=== PATIENT | female | born 1975 | race Hispanic/Latino ===

== ENCOUNTER 2017-11-21 04:56 | Emergency (ER) | payer OTHER ==
[2017-11-21 05:04] VITALS: O2SAT 100
--- NOTE | 2017-11-21 05:23 | ED PDOC ---
HPI: Abdomen Time Seen by Provider: 11/21/17 05:15 Chief Complaint (Nursing): Abdominal Pain Chief Complaint (Provider): abbdominal pain History Per: Patient History/Exam Limitations: no limitations Additional Complaint(s): 42yo M in ED for eval of acute abd pain that woke her up this AM severe 101/10 with 2-3 episode of vomiting. pain isolated to right flank/right lower quadrant area. no hx of similar in past. no foreign travel no change in BM no fever or chills, no sick contacts. no vaginal d/c, hematuira, dysuria Past Medical History Reviewed: Historical Data, Nursing Documentation, Vital Signs Vital Signs: Last Vital Signs Temp 97.0 F L 11/21/17 05:01 Pulse 54 L 11/21/17 05:01 Resp 16 11/21/17 05:01 BP 131/69 11/21/17 05:01 Pulse Ox 100 11/21/17 05:41 - Medical History PMH: No Chronic Diseases - Family History Family History: States: No Known Family Hx - Allergies Allergies/Adverse Reactions: Allergies Allergy/AdvReac Type Severity Reaction Status Date / Time No Known Allergies Allergy Verified 11/21/17 05:04 Review of Systems ROS Statement: Except As Marked, All Systems Reviewed And Found Negative Gastrointestinal: Positive for: Nausea, Vomiting, Abdominal Pain Physical Exam - Reviewed Nursing Documentation Reviewed: Yes Vital Signs Reviewed: Yes - Physical Exam Appears: Positive for: Non-toxic, No Acute Distress, Uncomfortable Head Exam: Positive for: ATRAUMATIC, NORMAL INSPECTION, NORMOCEPHALIC Cardiovascular/Chest: Positive for: Regular Rate, Rhythm Respiratory: Positive for: CNT, Normal Breath Sounds Gastrointestinal/Abdominal: Positive for: Tenderness (RLQ), Guarding Back: Positive for: R CVA Tenderness Neurologic/Psych: Positive for: Alert, Oriented - ECG O2 Sat by Pulse Oximetry: 100 - Progress ED Course And Treament: impression: renal stone vs appendicitis. Orders Category Date Time Status ABD & PELVIS IV CONTRAST ONLY [CT] Stat CT 11/21/17 05:20 Ordered COMP METABOLIC PANEL Stat Chem 11/21/17 05:15 Uncollected LIPASE Stat Chem 11/21/17 05:15 Uncollected ED Urine (POC) Stat ED Care 11/21/17 05:15 Uncollected CBC (WITH DIFFERENTIAL) Stat JB 11/21/17 05:15 Uncollected Morphine Med 11/21/17 05:26 Discontinued 2 mg .ROUTE .STK-MED ONE Morphine Med 11/21/17 05:15 Discontinued 2 mg IVP STAT STA Ondansetron [Zofran Inj] Med 11/21/17 05:26 Discontinued 4 mg .ROUTE .STK-MED ONE Ondansetron [Zofran Tab] Med 11/21/17 05:15 Discontinued 4 mg PO STAT STA Scrub Nurse CONT NURSING 11/21/17 05:15 Active IV Insertion (Saline Lock) ONCE NURSING 11/21/17 05:15 Active URINALYSIS Stat URINALYSIS 11/21/17 05:15 Uncollected Medical Decision Making Medical Decision Making: case transferred pending labs and CT results. Disposition - Clinical Impression Clinical Impression: Abdominal pain - Patient ED Disposition Is Patient to be Admitted: Transfer of Care - Disposition Disposition Time: 05:56 Condition: FAIR Forms: [employer] [facility] (Kyrgyz)
[2017-11-21] MEDS ORDERED: Iohexol 300 100 ML IJ ONE (06:30)
[2017-11-21] MEDS ORDERED: Sodium Chloride 0.9% 0 ML IV ONE (06:30)
--- NOTE | 2017-11-21 06:32 | ED PDOC ---
- ECG O2 Sat by Pulse Oximetry: 100 Medical Decision Making Medical Decision Makin:00 --Patient endorsed to me by Alana Benito PA-C, pending blood work and CT scan 07:00 --Patient signed out to Dr. Padilla, pending blood work and CT scan Disposition - Clinical Impression Clinical Impression: Abdominal pain - POA Present On Arrival: None - Disposition Disposition: Transfer of Care Disposition Time: 07:00 Condition: FAIR Forms: [facility] (Kyrgyz) Patient Signed Over To: Candelaria Padilla Handoff Comments: pending labs, CT, and reassessment
[2017-11-21 06:44] LABS: BASO % 0.3 % (0.0-2.0); EOS % 0.1 % (0.0-4.0); HEMOGLOBIN 13.9 g/dL (12.0-16.0); LYMPH # 1.2 K/uL (1.0-4.3); LYMPH % 8.2 % (20.0-40.0); MEAN CORPUSCULAR HEMOGLOBIN 29.6 pg (27.0-31.0); MEAN CORPUSCULAR HGB CONC 32.9 g/dL (33.0-37.0); MEAN PLATELET VOLUME 8.1 fl (7.2-11.7); MONO # 0.7 K/uL (0.0-0.8); MONO % 4.9 % (0.0-10.0); NEUT # 12.5 K/uL (1.8-7.0); NEUT % 86.5 % (50.0-75.0); PLATELET COUNT 352 K/uL (130-400); RBC 4.68 Mil/uL (3.80-5.20); RED CELL DISTRIBUTION WIDTH 14.4 % (11.5-14.5); WHITE BLOOD COUNT 14.5 K/uL (4.8-10.8)
[2017-11-21 06:52] LABS: ALT/SGPT 65 U/L (9-52); AST/SGOT 43 U/L (14-36); BLOOD UREA NITROGEN 14 mg/dl (7-17); GFR AFRICAN-AMERICAN > 60; GFR NON-AFRICAN AMERICAN > 60; LIPASE 55 U/L (23-300)
[2017-11-21 06:57] LABS: SQUAMOUS EPITHIAL 3 /hpf (0-5); URINE BACTERIA OCC (<OCC); URINE BILIRUBIN NEGATIVE (NEGATIVE); URINE BLOOD SMALL (NEGATIVE); URINE CLARITY CLOUDY (Clear); URINE COLOR YELLOW (YELLOW); URINE GLUCOSE (UA) NEG (Normal); URINE LEUKOCYTE ESTERASE MOD Leu/uL (Negative); URINE NITRATE POSITIVE (NEGATIVE); URINE PROTEIN 30 mg/dL (NEGATIVE); URINE UROBILINOGEN 0.2-1.0 mg/dL (0.2-1.0)
[2017-11-21 07:08] LABS: ALB/GLOB RATIO 1.5 (1.0-2.1)
--- NOTE | 2017-11-21 07:30 | ED PDOC ---
- Laboratory Results Result Diagrams: 11/21/17 06:35 11/21/17 06:35 - ECG O2 Sat by Pulse Oximetry: 100 - Progress ED Course And Treament: 700: Stable. Took over care from Dr. Baker. Fu on ct. 830: Stable. AAOx3. Pain free. Spoke with Dr. Mcnamara. Made aware of presentation, findings, urine, ct, and clinical picture. Wants pt. to be dc if pt. is feeling better. [place] Tues. Flomax and motrin. No antibiotics. 835: Pt. tolerated po. AAOx3. Ambulated with no issues. Medical Decision Making Medical Decision Making: Time: --07:00 Reassess --Patient signed out to the provider pending blood work and CT scan --07:05 --patient refused any oral or IV contrast for CT because she didn't want to pump and dump her breast milk --7:57 FINDINGS:CT Abdomen and Pelvis Without Intravenous Contrast Lower thorax: No acute findings. ABDOMEN: Liver: Unremarkable. Gallbladder and bile ducts: Unremarkable. No calcified stones. No ductal dilation. Pancreas: Unremarkable. No ductal dilation. Spleen: Unremarkable. No splenomegaly. Adrenals: Unremarkable. No mass. Kidneys and ureters: Moderate to severe right hydronephrosis secondary to a 6 x 5 mm right UVJ calculus. Perinephric/periureteric stranding Stomach and bowel: Moderate stool in the colon No obstruction. No mucosal thickening. Appendix: No findings to suggest acute appendicitis. PELVIS: Bladder: Unremarkable. No stones. Reproductive: Unremarkable as visualized. ABDOMEN and PELVIS: Intraperitoneal space: Unremarkable. No free air. No significant fluid collection. Bones/joints: No acute fracture. No dislocation. Degenerative changes in the lumbar spine Soft tissues: Unremarkable. Vasculature: Unremarkable. No abdominal aortic aneurysm. Lymph nodes: Unremarkable. No enlarged lymph nodes. IMPRESSION: Moderate to severe right hydronephrosis secondary to 6 x 5 mm right UPJ calculus Question constipation Scribe Attestation: Documented by Bryson Pena acting as a scribe for Bull Valencia MD Disposition - Clinical Impression Clinical Impression: Ureteral stone - POA Present On Arrival: None - Disposition Referrals: [facility] [Outside] - 11/22/17 Dav Mcnamara Jr., MD [Staff Provider] - 11/23/17 12:00 pm Disposition: Routine/Home Disposition Time: 08:36 Condition: FAIR Additional Instructions: Return if not better in 3 days. Prescriptions: Ibuprofen [Motrin] 600 mg PO TID 7 Days tab Tamsulosin [Flomax] 0.4 mg PO DAILY PRN #6 cap PRN Reason: Pain Instructions: Ureteral Stones (ED) Forms: [email or web address] (Yakut)
[2017-11-21 08:37] VITALS: BP 119/76; PULSE 69; RESP 19; TEMP 97.9
--- NOTE | 2017-11-21 08:54 | CT ---
PROCEDURE: CT Abdomen and Pelvis without intravenous contrast HISTORY: R/O stone COMPARISON: None. TECHNIQUE: CT scan of the abdomen and pelvis was performed utilizing multiple helical axial images. Coronal and sagittal reformatted images were also obtained.. Contrast Dose: No contrast administered Radiation dose: Total exam DLP = 565 mGy-cm. This CT exam was performed using one or more of the following dose reduction techniques: Automated exposure control, adjustment of the mA and/or kV according to patient size, and/or use of iterative reconstruction technique. FINDINGS: LOWER THORAX: Unremarkable. LIVER: Noncontrast images of the liver show no evidence of focal mass or intrahepatic ductal dilatation. GALLBLADDER AND BILE DUCTS: Unremarkable. PANCREAS: Unremarkable. No gross lesion or ductal dilatation. SPLEEN: Unremarkable. ADRENALS: Unremarkable. No mass. KIDNEYS AND URETERS: There is evidence of severe right hydronephrosis and moderate right-sided perinephric inflammatory changes secondary to an obstructing proximal right ureteral calculus measuring 6 millimeters. Ureter is decompressed distal to the calculus without additional right ureteral calculus identified. The perinephric changes extend towards the right renal pelvis, but also extend into the right anterior and posterior para renal spaces. No other right renal or left renal calculi are seen. Left kidney is otherwise unremarkable without hydronephrosis or perinephric change. Left ureter is normal in outline without dilatation or calculus. VASCULATURE: Unremarkable. No aortic aneurysm. BOWEL: Moderate residual fecal material is seen throughout the colon. No pericolonic inflammatory changes are seen. No small bowel dilatation or small bowel obstruction is noted. APPENDIX: Appendix measures up to 7 millimeters without periappendiceal inflammatory changes PERITONEUM: Small amount of fluid is noted extending into the right pericolic gutter. No free intraperitoneal air is noted. LYMPH NODES: No significant mesenteric adenopathy is seen. No retroperitoneal or pelvic adenopathy is noted. BLADDER: No bladder calculus or bladder wall thickening REPRODUCTIVE: Uterus is normal in size. No appreciable adnexal masses are noted. No fluid is seen in the pelvis. BONES: Degenerative changes are seen in the lower lumbar spine region. No lytic process is noted. There are mild degenerative changes seen in the right hip. There may be a CAM type of deformity appreciated in the right hip and left hip. Femoroacetabular impingement is not excluded. OTHER FINDINGS: There appears to be evidence of prior lower anterior abdominal wall surgery with induration appreciated in the subcutaneous fat correlation with surgical history would be suggested. IMPRESSION: Obstructing proximal right ureteral calculus measuring 6 millimeters and causing moderate right hydronephrosis and perinephric changes. Please see above for other details.
[2017-11-21 12:35] LABS: BASOPHIL 1 % (0-2); LYMPHOCYTE 9 % (20-50); MONOCYTE 5 % (0-10); NEUTROPHIL 83 % (42-75); PLATELET ESTIMATE NORMAL (NORMAL); REACTIVE LYMPHOCYTES 2 % (0-0); TOTAL CELLS COUNTED 100
== END 2017-11-21 08:44 | disposition home or self-care (01) ==
LOC: H.ER 04:56
DX: N13.2 Hydronephrosis with renal and ureteral calculous obstruction (principal)
CPT/HCPCS: 74176; 80053; 81003; 81025; 83690; 85025; 96374; 96375; 99285; J1885; J2270